=== PATIENT | female | born 1955 | race Caucasian/White ===

== ENCOUNTER 2023-01-28 01:54 | Emergency (ER) | payer MEDICARE ==
[2023-01-28 02:03] VITALS: RESP 18
[2023-01-28] MEDS ORDERED: FAMOTIDINE 20 MG/2 ML VIAL IV STA (02:17)
[2023-01-28] MEDS ORDERED: PANTOPRAZOLE 40 MG/10 ML VIAL IVP STA (02:17)
[2023-01-28] MEDS ORDERED: SODIUM CHLORIDE 0.9% 1,000 ML IV STA (02:17)
[2023-01-28] MEDS ORDERED: KETOROLAC 15 MG/ML 1 ML VIAL IVP STA (02:22)
--- NOTE | 2023-01-28 02:25 | ED ---
Abdominal Pain HPI - General Chief Complaint: Abdominal Pain Stated Complaint: Abd Pain Time Seen by Provider: 01/28/23 02:16 Source: patient, EMS Mode of arrival: EMS Limitations: no limitations - History of Present Illness Initial Comments: Patient is a 67-year-old female presents to the emergency department for abdominal pain. This started around 10 PM last night. Pain is in the upper middle abdomen. There is no radiation. Patient with oxycodone prior to arrival with significant relief. No nausea, vomiting, constipation, diarrhea, blood in stool. No fever or chills. Patient denies history of acid reflux or pancreatitis. No chest pain or shortness of breath. Patient does mention these episodes have happened before usually after eating chips. She denies consistent use of anti-inflammatory medication. Denies tobacco use. Reports occasional alcohol use. - Related Data Previous Rx's Medication Instructions Recorded Ibuprofen [Motrin] 600 mg PO Q6HR PRN #30 tab 01/28/23 Allergies Allergy/AdvReac Type Severity Reaction Status Date / Time prochlorperazine Allergy Unknown Verified 01/28/23 01:58 [From Compazine] Review of Systems ROS Statement: Those systems with pertinent positive or pertinent negative responses have been documented in the HPI. ROS Other: All systems not noted in ROS Statement are negative. Past Medical History Additional Past Medical History / Comment(s): Deaf right ear History of Any Multi-Drug Resistant Organisms: None Reported Past Surgical History: Bowel Resection Past Psychological History: No Psychological Hx Reported Smoking Status: Never smoker Past Alcohol Use History: Rare Past Drug Use History: None Reported General Exam Limitations: no limitations General appearance: alert, in no apparent distress Head exam: Present: atraumatic, normocephalic, normal inspection Eye exam: Present: normal appearance, PERRL, EOMI. Absent: scleral icterus, conjunctival injection, periorbital swelling Respiratory exam: Present: normal lung sounds bilaterally. Absent: respiratory distress, wheezes, rales, rhonchi, stridor Cardiovascular Exam: Present: regular rate, normal rhythm, normal heart sounds. Absent: systolic murmur, diastolic murmur, rubs, gallop, clicks GI/Abdominal exam: Present: soft, normal bowel sounds. Absent: distended, tenderness, guarding, rebound, rigid Neurological exam: Present: alert, oriented X3, CN II-XII intact Psychiatric exam: Present: normal affect, normal mood Skin exam: Present: warm, dry, intact, normal color. Absent: rash Course Vital Signs 01/28/23 01:58 Temperature 97.7 F Pulse Rate 71 Respiratory 18 Rate Blood Pressure 145/88 O2 Sat by Pulse 98 Oximetry Medical Decision Making - Medical Decision Making EKG taken at 02:26, to prevent me Sinus rhythm with first-degree AV block, no ST or segment or T-wave abnormality Ventricular rate 70, OR interval to 217, QRS hindu 93, QTc 451 Was pt. sent in by a medical professional or institution (, PA, SURFACE MOUNT TECHNOLOGY OPERATOR, urgent care, hospital, or alf...) When possible be specific @ -No Did you speak to anyone other than the patient for history (EMS, parent, family, police, friend...)? What history was obtained from this source @ -No Did you review nursing and triage notes (agree or disagree)? Why? @ -[I reviewed and mostly agree. Patient does not have nausea Were old charts reviewed (outside hosp., previous admission, EMS record, old EKG, old radiological studies, urgent care reports/EKG's, alf records)? Report findings @ -No old charts were reviewed Differential Diagnosis (chest pain, altered mental status, abdominal pain women, abdominal pain men, vaginal bleeding, weakness, fever, dyspnea, syncope, headache, dizziness, GI bleed, back pain, seizure, CVA, palpatations, mental health)? @ -Differential Abdominal Pain Women: Appendicitis, Cholecystitis, diverticulosis, ischemic bowel, pancreatitis, hepatitis, UTI, gastroenteritis, AAA, incarcerated hernia, bowel obstruction, constipation, inflammatory bowel, hepatitis, peptic ulcer disease, splenic inf arction, perforated viscus, vulvitis, ovarian torsion, PID, kidney stone, placenta abruption, this is not meant to be an all-inclusive list EKG interpreted by me (3pts min.). @ -As above X-rays interpreted by me (1pt min.). @ -None done CT interpreted by me (1pt min.). @ -None done U/S interpreted by me (1pt. min.). @ -None done What testing was considered but not performed or refused? (CT, X-rays, U/S, labs)? Why? @ -Considered ultrasound as her suspicion for gallstones however due to being the middle of the night we do not have ultrasound. Discussed CT imaging with patient who declines she will follow up outpatient for ultrasound What meds were considered but not given or refused? Why? @ -None Did you discuss the management of the patient with other professionals (professionals i.e. , PA, SURFACE MOUNT TECHNOLOGY OPERATOR, lab, RT, psych nurse, social services coordinator, cattle producers, teacher, fundraising officer, case monitor)? Give summary @ -No Was smoking cessation discussed for >3mins.? @ -No Was critical care preformed (if so, how long)? @ -No Were there social determinants of health that impacted care today? How? (Homelessness, low income, unemployed, alcoholism, drug addiction, transportation, low edu. Level, literacy, decrease access to med. care, assisted, rehab)? @ -No Was there de-escalation of care discussed even if they declined (Discuss DNR or withdrawal of care, Hospice)? DNR status @ -No What co-morbidities impacted this encounter? (DM, HTN, Smoking, COPD, CAD, Cancer, CVA, ARF, Chemo, Hep., AIDS, mental health diagnosis, sleep apnea, morbid obesity)? @ -None Was patient admitted / discharged? Hospital course, mention meds given and route, prescriptions, significant lab abnormalities, going to OR and other pertinent info. @ -Patient presented with epigastric pain. The abdomen soft and nontender. No nausea or vomiting. With suspicion for gallstones US testing desired however due to being the middle of the night we do not have ultrasound. Discussed CT imaging with patient who declines she will follow up outpatient for ultrasound. This is reasonable as patient has minimal pain, no abdominal tenderness, unremarkable labs. Patient is referred to GI specialist we discussed return parameters. Undiagnosed new problem with uncertain prognosis? @ -No Drug Therapy requiring intensive monitoring for toxicity (Heparin, Nitro, Insulin, Cardizem)? @ -No Were any procedures done? @ -No Diagnosis/symptom? @ -epigastric pain Acute, or Chronic, or Acute on Chronic? @ -Acute Uncomplicated (without systemic symptoms) or Complicated (systemic symptoms)? @ -default Side effects of treatment? @ -No Exacerbation, Progression, or Severe Exacerbation? @ -No Poses a threat to life or bodily function? How? (Chest pain, [place], [place], pneumonia, PE, COPD, DKA, ARF, appy, cholecystitis, CVA, Diverticulitis, Homicidal, Suicidal, threat to staff... and all critical care pts) @ -No] Dr. Carlos is my attending - Lab Data Result diagrams: 01/28/23 02:18 01/28/23 02:18 Lab Results 01/28/23 01/28/23 Range/Units 02:18 02:18 WBC 6.6 (3.8-10.6) k/uL RBC 4.34 (3.80-5.40) m/uL Hgb 13.2 (11.4-16.0) gm/dL Hct 38.0 (34.0-46.0) % MCV 87.6 (80.0-100.0) fL MCH 30.5 (25.0-35.0) pg MCHC 34.8 (31.0-37.0) g/dL RDW 12.6 (11.5-15.5) % Plt Count 203 (150-450) k/uL MPV 8.1 Neutrophils % 77 % Lymphocytes % 13 % Monocytes % 5 % Eosinophils % 1 % Basophils % 0 % Neutrophils # 5.1 (1.3-7.7) k/uL Lymphocytes # 0.9 L (1.0-4.8) k/uL Monocytes # 0.4 (0-1.0) k/uL Eosinophils # 0.1 (0-0.7) k/uL Basophils # 0.0 (0-0.2) k/uL Sodium 136 L (137-145) mmol/L Potassium 3.8 (3.5-5.1) mmol/L Chloride 103 (98-107) mmol/L Carbon Dioxide 25 (22-30) mmol/L Anion Gap 8 mmol/L BUN 18 H (7-17) mg/dL Creatinine 0.67 (0.52-1.04) mg/dL Est GFR (CKD-EPI)AfAm >90 (>60 ml/min/1.73 sqM) Est GFR (CKD-EPI)NonAf >90 (>60 ml/min/1.73 sqM) Glucose 102 H (74-99) mg/dL Calcium 8.3 L (8.4-10.2) mg/dL Total Bilirubin 0.8 (0.2-1.3) mg/dL AST 39 H (14-36) U/L ALT 29 (4-34) U/L Alkaline Phosphatase 72 (38-126) U/L Total Protein 7.7 (6.3-8.2) g/dL Albumin 4.0 (3.5-5.0) g/dL Lipase 199 (23-300) U/L Disposition Clinical Impression: Epigastric abdominal pain Disposition: HOME SELF-CARE Condition: Good Instructions (If sedation given, give patient instructions): Gallstones (ED), Abdominal Pain (ED) Additional Instructions: Follow-up with GI specialist/primary care provider in 1-2 days for further evaluation and management of your pain possibly by ultrasound. Return to the emergency department if you experience new, concerning, or worsening symptoms. Prescriptions: Ibuprofen [Motrin] 600 mg PO Q6HR PRN #30 tab PRN Reason: Pain Is patient prescribed a controlled substance at d/c from ED?: No Referrals: Broderick Infante DO [Primary Care Provider] - 1-2 days
[2023-01-28 02:42] LABS: Basophils % (A) 0 %; Eosinophils # (A) 0.1 k/uL (0-0.7); Eosinophils % (A) 1 %; HGB 13.2 gm/dL (11.4-16.0); Lymphocytes # (A) 0.9 k/uL (1.0-4.8); Lymphocytes % (A) 13 %; MCH 30.5 pg (25.0-35.0); MCHC 34.8 g/dL (31.0-37.0); MCV 87.6 fL (80.0-100.0); Mean Platelet Volume 8.1; Monocytes # (A) 0.4 k/uL (0-1.0); Monocytes % (A) 5 %; Neutrophils # (A) 5.1 k/uL (1.3-7.7); Neutrophils % (A) 77 %; Platelet Count 203 k/uL (150-450); RBC 4.34 m/uL (3.80-5.40); RDW 12.6 % (11.5-15.5); WBC 6.6 k/uL (3.8-10.6)
[2023-01-28 03:04] LABS: ALT 29 U/L (4-34); AST 39 U/L (14-36); African American GFR (CKD) >90 (>60 ml/min/1.73 sqM); Alkaline Phosphatase 72 U/L (38-126); Anion Gap 8 mmol/L; Blood Urea Nitrogen 18 mg/dL (7-17); Calcium 8.3 mg/dL (8.4-10.2); Carbon Dioxide 25 mmol/L (22-30); Chloride 103 mmol/L (98-107); Glucose 102 mg/dL (74-99); Lipase 199 U/L (23-300); Non-African American GFR(CKD) >90 (>60 ml/min/1.73 sqM); Potassium 3.8 mmol/L (3.5-5.1); Sodium 136 mmol/L (137-145); Total Bilirubin 0.8 mg/dL (0.2-1.3); Total Protein 7.7 g/dL (6.3-8.2)
[2023-01-28 03:33] VITALS: BP 133/85; PULSE 82; TEMP 98.3
== END 2023-01-28 03:30 | disposition home or self-care (01) ==
LOC: EC 01:54
DX: R10.13 Epigastric pain (principal); Z88.8 Allergy status to other drugs, medicaments and biological substances
CPT/HCPCS: 36415; 93005; 80053; 83690; 85025; 99285; 96374; 96375 ×2; 96361; J1885; C9113

== ENCOUNTER 2024-07-29 15:43 | Emergency (ER) | payer MEDICARE ==
[2024-07-29 15:56] VITALS: RESP 18
--- NOTE | 2024-07-29 16:13 | ED ---
General Adult HPI - General Chief complaint: Abdominal Pain Stated complaint: gallbladder pain Time Seen by Provider: 07/29/24 15:59 Source: patient Mode of arrival: wheelchair Limitations: no limitations - History of Present Illness Initial comments: Dictation was produced using [employer] dictation software. please excuse any grammatical, word or spelling errors. Chief Complaint: 68-year-old female presents to the emergency department with abdominal pain History of Present Illness: Patient 68-year-old female she has no history of gallstones. She presents to the emergency department after having had a gallbladder attack today. She states she gets gallbladder attacks daily. Denies any fever, chills or night sweats she took half of [place] which alleviated her symptoms. Patient has not seen a surgeon yet however she has been referred to 1. She does not have that appointment till August. Patient denies any fever, chills or night sweats. The ROS documented in this emergency department record has been reviewed and confirmed by me. Those systems with pertinent positive or negative responses have been documented in the HPI. All other systems are other negative and/or noncontributory. - Related Data Previous Rx's Medication Instructions Recorded Ibuprofen [Motrin] 600 mg PO Q6HR PRN #30 tab 01/28/23 HYDROcodone/APAP 5-325MG [[place] 1 tab PO Q6HR PRN 3 Days #12 tab 07/29/24 5-325] Allergies Allergy/AdvReac Type Severity Reaction Status Date / Time prochlorperazine Allergy Unknown Verified 07/29/24 15:52 [From Compazine] Review of Systems ROS Statement: Those systems with pertinent positive or pertinent negative responses have been documented in the HPI. ROS Other: All systems not noted in ROS Statement are negative. Past Medical History Additional Past Medical History / Comment(s): Deaf right ear, acoustic neuroma History of Any Multi-Drug Resistant Organisms: None Reported Past Surgical History: Bowel Resection Past Psychological History: No Psychological Hx Reported Smoking Status: Never smoker Past Alcohol Use History: Occasional Past Drug Use History: None Reported General Exam - General Exam Comments Initial Comments: PHYSICAL EXAM: General Impression: Alert and oriented x3, not in acute distress HEENT: Normocephalic atraumatic, extra-ocular movements intact, pupils equal and reactive to light bilaterally, mucous membranes moist. Cardiovascular: Heart regular rate and rhythm Chest: Able to complete full sentences, no retractions, no tachypnea Abdomen: abdomen soft, positive Rodriguez sign, positive right upper quadrant palpatory tenderness, non-distended, no organomegaly Musculoskeletal: Pulses present and equal in all extremities, no peripheral edema Motor: no focal deficits noted Neurological: CN II-XII grossly intact, no focal motor or sensory deficits noted Skin: Intact with no visualized rashes Psych: Normal affect and mood Limitations: no limitations Course Vital Signs 07/29/24 15:53 Temperature 98.6 F Pulse Rate 63 Respiratory 18 Rate Blood Pressure 142/88 O2 Sat by Pulse 96 Oximetry - Reevaluation(s) Reevaluation #1: 07/29/24 18:04 Case discussed with on-call surgeon, Dr. Rabago who provides patient with 2 options 1 was to follow-up in the office on Tuesday to have arranged surgery so she does not have to wait to August for her appointment. Patient also given the option of being admitted to have cholecystectomy performed within the next 48 hours. Patient would prefer to be discharged follow-up on Tuesday. Patient agreeable with plan. EKG Findings - EKG Comments: EKG Findings:: My EKG interpretation: Ventricular rate 58, sinus bradycardia,. 09/20/1931, QRS 93, QTc 425. No UT prolongation, no QTC prolongation, no ST or T- wave changes noted. Overall, this EKG is unremarkable Medical Decision Making - Medical Decision Making Was pt. sent in by a medical professional or institution (, PA, SQUEEZER OPERATOR, urgent care, hospital, or fci...) When possible be specific @ -No Did you speak to anyone other than the patient for history (EMS, parent, family, police, friend...)? What history was obtained from this source @ -No Did you review nursing and triage notes (agree or disagree)? Why? @ -I reviewed and agree with nursing and triage notes Were old charts reviewed (outside hosp., previous admission, EMS record, old EKG, old radiological studies, urgent care reports/EKG's, fci records)? Report findings @ -No old charts were reviewed Differential Diagnosis (chest pain, altered mental status, abdominal pain women, abdominal pain men, vaginal bleeding, musculoskeletal, weakness, fever, dyspnea, syncope, headache, dizziness, GI bleed, back pain, seizure, CVA, palpatations, mental health)? @ -Differential abdominal pain women EKG interpreted by me (3pts min.). @ -None done X-rays interpreted by me (1pt min.). @ -None done CT interpreted by me (1pt min.). @ -None done U/S interpreted by me (1pt. min.). @ -Ultrasound shows cholelithiasis What testing was considered but not performed or refused? (CT, X-rays, U/S, labs)? Why? @ -None What meds were considered but not given or refused? Why? @ -None Was smoking cessation discussed for >3mins.? @ -No Were there social determinants of health that impacted care today? How? (Homelessness, low income, unemployed, alcoholism, drug addiction, transportation, low edu. Level, literacy, decrease access to med. care, fci, rehab)? @ -No Was there de-escalation of care discussed even if they declined (Discuss DNR or withdrawal of care, Hospice)? DNR status @ -No What co-morbidities impacted this encounter? (DM, HTN, Smoking, COPD, CAD, Cancer, CVA, ARF, Chemo, Hep., AIDS, mental health diagnosis, sleep apnea, morbid obesity)? @ -None Was patient admitted / discharged? Hospital course, mention meds given and route, prescriptions, significant lab abnormalities, going to OR and other pertinent info. @ -68-year-old female presents to the emergency department for symptomatic cholelithiasis. Vital signs stable. Laboratory evaluation within acceptable limits. Ultrasound shows cholelithiasis without any evidence for choledocholithiasis. Case discussed with surgeon who gave patient couple options as described above. Patient would like to be discharged follow-up closely with Dr. Rabago for outpatient management of symptomatic gallbladder. Did you discuss the management of the patient with other professionals (professionals i.e. Dr., PA, SQUEEZER OPERATOR, lab, RT, psych nurse, social science manager, tunnel worker, teacher, community service officer coordinator, case management social worker)? Give summary @ -No Was critical care preformed (if so, how long)? @ -No Undiagnosed new problem with uncertain prognosis? @ -No Drug Therapy requiring intensive monitoring for toxicity (Heparin, Nitro, Insulin, Cardizem)? @ -No Were any procedures done? @ -No Diagnosis/symptom? Acute, or Chronic, or Acute on Chronic? Uncomplicated (without systemic symptoms) or Complicated (systemic symptoms)? @ -cholelithiasis Side effects of treatment? @ -No Exacerbation, Progression, or Severe Exacerbation? @ -No Poses a threat to life or bodily function? How? (Chest pain, [place], [place], pneumonia, PE, COPD, DKA, ARF, appy, cholecystitis, CVA, Diverticulitis, Homicidal, Suicidal, threat to staff... and all critical care pts) @ -yes - Lab Data Result diagrams: 07/29/24 16:28 07/29/24 16:28 Lab Results 07/29/24 07/29/24 Range/Units 16:28 16:28 WBC 4.7 (3.8-10.6) k/uL RBC 4.68 (3.80-5.40) m/uL Hgb 14.6 (11.4-16.0) gm/dL Hct 42.1 (34.0-46.0) % MCV 90.0 (80.0-100.0) fL MCH 31.2 (25.0-35.0) pg MCHC 34.6 (31.0-37.0) g/dL RDW 12.6 (11.5-15.5) % Plt Count 214 (150-450) k/uL MPV 7.4 Neutrophils % 71 % Lymphocytes % 17 % Monocytes % 6 % Eosinophils % 3 % Basophils % 0 % Neutrophils # 3.3 (1.3-7.7) k/uL Lymphocytes # 0.8 L (1.0-4.8) k/uL Monocytes # 0.3 (0-1.0) k/uL Eosinophils # 0.1 (0-0.7) k/uL Basophils # 0.0 (0-0.2) k/uL Sodium 137 (137-145) mmol/L Potassium 4.0 (3.5-5.1) mmol/L Chloride 104 (98-107) mmol/L Carbon Dioxide 27 (22-30) mmol/L Anion Gap 6 mmol/L BUN 14 (7-17) mg/dL Creatinine 0.79 (0.52-1.04) mg/dL Est GFR (CKD-EPI)AfAm 89 (>60 ml/min/1.73 sqM) Est GFR (CKD-EPI)NonAf 77 (>60 ml/min/1.73 sqM) Glucose 118 H (74-99) mg/dL Calcium 8.6 (8.4-10.2) mg/dL Total Bilirubin 0.4 (0.2-1.3) mg/dL AST 61 H (14-36) U/L ALT 40 H (4-34) U/L Alkaline Phosphatase 78 (38-126) U/L Total Protein 7.8 (6.3-8.2) g/dL Albumin 4.0 (3.5-5.0) g/dL Lipase 203 (23-300) U/L Disposition Clinical Impression: Symptomatic cholelithiasis Disposition: HOME SELF-CARE Condition: Fair Instructions (If sedation given, give patient instructions): Gallstones (ED) Additional Instructions: call Dr. Rabago's office tomorrow to schedule appointment for tuesday. Prescriptions: HYDROcodone/APAP 5-325MG [[place] 5-325] 1 tab PO Q6HR PRN 3 Days #12 tab PRN Reason: Severe Pain Is patient prescribed a controlled substance at d/c from ED?: No Referrals: Bakari Rabago DO [Doctor of Osteopathic Medicine] - 07/31/24 Time of Disposition: 18:07
[2024-07-29] MEDS: SODIUM CHLORIDE 0.9% 1,000 ML IV STA (16:30)
[2024-07-29 16:44] LABS: Basophils % (A) 0 %; Eosinophils # (A) 0.1 k/uL (0-0.7); Eosinophils % (A) 3 %; HCT 42.1 % (34.0-46.0); HGB 14.6 gm/dL (11.4-16.0); Lymphocytes # (A) 0.8 k/uL (1.0-4.8); Lymphocytes % (A) 17 %; MCH 31.2 pg (25.0-35.0); MCHC 34.6 g/dL (31.0-37.0); Mean Platelet Volume 7.4; Monocytes # (A) 0.3 k/uL (0-1.0); Monocytes % (A) 6 %; Neutrophils # (A) 3.3 k/uL (1.3-7.7); Neutrophils % (A) 71 %; Platelet Count 214 k/uL (150-450); RBC 4.68 m/uL (3.80-5.40); RDW 12.6 % (11.5-15.5); WBC 4.7 k/uL (3.8-10.6)
[2024-07-29 16:58] LABS: ALT 40 U/L (4-34); AST 61 U/L (14-36); African American GFR (CKD) 89 (>60 ml/min/1.73 sqM); Alkaline Phosphatase 78 U/L (38-126); Anion Gap 6 mmol/L; Blood Urea Nitrogen 14 mg/dL (7-17); Calcium 8.6 mg/dL (8.4-10.2); Carbon Dioxide 27 mmol/L (22-30); Chloride 104 mmol/L (98-107); Glucose 118 mg/dL (74-99); Lipase 203 U/L (23-300); Non-African American GFR(CKD) 77 (>60 ml/min/1.73 sqM); Sodium 137 mmol/L (137-145); Total Bilirubin 0.4 mg/dL (0.2-1.3); Total Protein 7.8 g/dL (6.3-8.2)
--- NOTE | 2024-07-29 17:36 | US ---
EXAMINATION TYPE: US abdomen limited DATE OF EXAM: 07/29/2024 COMPARISON: NONE CLINICAL INDICATION: Female, 68 years old with history of epigastric pain; Pain TECHNIQUE: Grayscale and color Doppler imaging of the right upper quadrant was performed. FINDINGS: EXAM MEASUREMENTS: Liver Length: 15.6 cm Gallbladder Wall: .3 cm CBD: 0.7 cm which is within normal limits for patient's age. Right Kidney: 9.5 x 3.5 x 4.8 cm SALES REPRESENTATIVE UNIFORMS NOTES: Pancreas: Duct visualized 2mm tail obscured by bowel gas. Liver: wnl Gallbladder: Multiples stones visualized. Ramirez within normal limits. The gallbladder is nondistende d. Evidence for sonographic Rodriguez's sign: no CBD: Dilated. Right Kidney: wnl IMPRESSION: Cholelithiasis. No definitive choledocholithiasis. [facility] Laurent Boateng, , 07/29/2024 5:33 PM
[2024-07-29] MEDS: ACET/COD 300 MG/30 MG STARTER PACK 6 TAB BTL PO STA (18:22)
[2024-07-29 18:27] VITALS: BP 149/96; PULSE 66; TEMP 98
== END 2024-07-29 18:27 | disposition home or self-care (01) ==
LOC: EC 15:43
DX: K80.20 Calculus of gallbladder without cholecystitis without obstruction (principal); Z88.8 Allergy status to other drugs, medicaments and biological substances
CPT/HCPCS: 36415; 76705; 80053; 83690; 85025; 93005; 96360; 99284

== ENCOUNTER 2024-08-28 11:09 | Day surgery (SDC) | payer MEDICARE ==
[~2024-08-28 11:09] MED LIST: MIDAZOLAM 2 MG/2 ML VIAL IV PRN
[2024-08-28] MEDS: LACTATED RINGERS 1,000 ML IV SCH (11:49)
[2024-08-28] MEDS: ONDANSETRON 4 MG/2 ML VIAL IVP ONE (11:53)
[2024-08-28] MEDS: DEXAMETHASONE SOD PHOSPHATE 4 MG/ML 1 ML VIAL IV ONE (11:53)
[2024-08-28] MEDS: BUPIVACAINE (PF) 0.25% 30 ML VIAL SQ ONE ×2 (12:20→12:58)
[2024-08-28] MEDS ORDERED: INDOCYANINE GREEN 25 MG VIAL IV ONE (12:34)
[2024-08-28] MEDS ORDERED: SUCCINYLCHOLINE CHLORIDE 200 MG/10 ML VIAL IV ONE (12:34)
[2024-08-28] MEDS ORDERED: LIDOCAINE 1% INJ 10MG/ML (20 ML MDV) ONE (12:34)
[2024-08-28] MEDS ORDERED: GLYCOPYRROLATE 0.2 MG/ML 2 ML VIAL ONE (12:34)
[2024-08-28] MEDS ORDERED: HYDROmorphone (PF) 1 MG/ML ONE (12:34)
[2024-08-28] MEDS ORDERED: fentaNYL (PF) 50 MCG/ML 2 ML AMP ONE (12:34)
[2024-08-28] MEDS ORDERED: NEOSTIGMINE 1 MG/ML 10 ML VIAL ONE (12:34)
[2024-08-28] MEDS ORDERED: ROCURONIUM 10 MG/ML (5 ML VIAL) IV ONE (12:34)
[2024-08-28] MEDS ORDERED: PROPOFOL 10 MG/ML 20 ML VIAL IV ONE (12:34)
[2024-08-28] MEDS ORDERED: MIDAZOLAM 2 MG/2 ML VIAL ONE (12:34)
[2024-08-28] MEDS: HEPARIN SODIUM,PORCINE 5,000 UNIT/ML 1 ML VIAL SQ STA (12:37)
[2024-08-28] MEDS: LACTATED RINGERS 1,000 ML IV ONE ×2 (13:22→15:25)
[2024-08-28 14:44] VITALS: TEMP 99
[2024-08-28] MEDS: HYDROmorphone 0.5 MG/0.5 ML SYRINGE IVP PRN (14:57)
--- NOTE | 2024-08-28 16:46 | P.OP ---
Date of Procedure: 08/28/24 Preoperative Diagnosis: Chronic calculus cholecystitis Postoperative Diagnosis: Chronic calculus cholecystitis Procedure(s) Performed: Robotic cholecystectomy Anesthesia: SHARON Surgeon: Jennyfer Olivia Pathology: other (GallBladder and contents) Condition: stable Disposition: same day Indications for Procedure: 68-year-old female presented to the surgical clinic after recent workup in the emergency department for concern for biliary colic. She is found to have gallstones and concern for chronic calculus cholecystitis. Plan is for robotic cholecystectomy. Risks, benefits and alternatives were provided to the patient. All questions were answered. Operative Findings: Adhesive disease of the lower abdomen Gallbladder with gallstones Description of Procedure: Patient was brought to the operative suite and placed in supine position on the operating table. Sedation was provided by anesthesia and the patient underwent endotracheal intubation. The patient was then prepped and draped in regular sterile fashion. An infraumbilical incision was made and dissection was carried to the fascia. The fascia was incised and an 8 mm trocar was placed. Immediately it was clear that the patient had lower abdominal adhesive disease. 2 additional 8 mm trocars were placed in the right upper quadrant and on further evaluation adhesive bands were taken down with laparoscopic Metzenbaum scissors. An additional 8 mm trocar was placed in the left upper quadrant. Patient was placed in appropriate position and the robot was docked. The gallbladder was elevated superiorly and laterally and dissection was carried along the infundibulum towards the cystic duct. The cystic duct was skeletonized and the cystic artery was skeletonized. Critical view was obtained. ICG was used to confirm anatomy. 2 clips were placed proximally on the cystic duct 1 was placed distally and the cystic duct was ligated. Similarly, 2 clips were placed proximally on the cystic artery 1 was placed distally and the cystic artery was ligated. Cautery was then used to dissect the gallbladder off the gallbladder fossa. Hemostasis was noted to be maintained on the gallbladder fossa. The gallbladder was placed in Endo Catch bag and removed from the abdomen from the infraumbilical port site. On evaluation of the infraumbilical port site, some bleeding was noted at the takedown of the adhesions. This was noted to be on the omentum. The infraumbilical incision was then slightly expanded and the omentum was brought through the incision and site was cauterized. Hemostasis was noted to be maintained at this point. Pneumoperitoneum was released and all ports removed from the abdomen. The infraumbilical fascial incision site was closed with 0 Vicryl suture in interrupted form. All skin incisions were closed with 4-0 Vicryl subcuticular suture. Sterile dressing was applied. The patient was taken to postanesthesia care unit in stable condition.
[2024-08-28 17:35] VITALS: BP 127/82; PULSE 78; RESP 14
== END 2024-08-28 17:49 | disposition home or self-care (01) ==
LOC: OR 11:09
PROVIDERS: ATTEND Surgery
DX: K80.11 Calculus of gallbladder with chronic cholecystitis with obstruction (principal); E03.9 Hypothyroidism, unspecified; D33.3 Benign neoplasm of cranial nerves; H91.91 Unspecified hearing loss, right ear; Z88.8 Allergy status to other drugs, medicaments and biological substances; Z79.890 Hormone replacement therapy; Z79.899 Other long term (current) drug therapy
CPT/HCPCS: 47562; S2900; 88304